=== PATIENT | female | born 1995 | race Caucasian/White ===

== ENCOUNTER 2018-01-27 14:15 | Emergency (ER) | payer MEDICAID ==
[2018-01-27 14:21] VITALS: BP 133/76
--- NOTE | 2018-01-27 15:20 | ER Document Report ---
ED General - General Chief Complaint: Syncope Stated Complaint: VOMITING Time Seen by Provider: 01/27/18 15:14 Mode of Arrival: Ambulatory Information source: Patient TRAVEL OUTSIDE OF THE [place] IN LAST 30 DAYS: No - HPI Patient complains to provider of: sunburn yesterday; N/V today Onset: This morning - pt with sunburn yesterday with N/V and syncopal episode today - feels fine now. Wants work note - Related Data Allergies/Adverse Reactions: No Known Allergies Allergy (Verified 01/27/18 15:19) Past Medical History - General Information source: Patient - Social History Smoking Status: Never Smoker Cigarette use (# per day): No Chew tobacco use (# tins/day): No Smoking Education Provided: No Family History: None Review of Systems - Review of Systems Constitutional: No symptoms reported EENT: No symptoms reported Cardiovascular: No symptoms reported Gastrointestinal: See HPI, Nausea, Vomiting Neurological/Psychological: See HPI -: Yes All other systems reviewed and negative Physical Exam - Vital signs Vitals: Temp Pulse Resp BP Pulse Ox 98.5 F 112 H 18 133/76 H 98 01/27/18 14:20 01/27/18 14:20 01/27/18 14:20 01/27/18 14:20 01/27/18 14:20 - General General appearance: Appears well In distress: None - HEENT Pharynx: Normal Neck: Normal - Respiratory Respiratory status: No respiratory distress Breath sounds: Normal - Cardiovascular Rhythm: Regular Heart sounds: Normal auscultation - Neurological Neuro grossly intact: Yes Cognition: Normal Orientation: AAOx4 - Skin Skin Color: Erythema Course - Re-evaluation Re-evalutation: 01/27/18 15:16 pt. has refused labs --wants work note and be d/c'd - Vital Signs Vital signs: Temp Pulse Resp BP Pulse Ox 98.5 F 112 H 18 133/76 H 98 01/27/18 14:20 01/27/18 14:20 01/27/18 14:20 01/27/18 14:20 01/27/18 14:20 Discharge - Discharge Clinical Impression: Sunburn Syncope Qualifiers: Syncope type: unspecified Qualified Code(s): R55 - Syncope and collapse Condition: Stable Disposition: HOME, SELF-CARE Additional Instructions: rest, avoid sun, increase fluids, take meds as prescribed, return if worse Prescriptions: Methylprednisolone [Medrol Dosepack (4 mg/Tab) 21 Tab/Dosepak] 21 tab PO ASDIR PRN #1 dspk PRN Reason: Forms: Return to Work Referrals: LUCY HERNANDES MD [ACTIVE STAFF] - Follow up as needed
--- NOTE | 2018-01-28 00:09 | EKG REPORT ---
SEVERITY:- NORMAL ECG - SINUS RHYTHM : Confirmed by: Mildred Calix MD 28-Jan-2018 00:08:33
== END 2018-01-27 15:20 | disposition home or self-care (01) ==
LOC: ER 14:15
DX: L55.0 Sunburn of first degree (principal); R55 Syncope and collapse; R11.2 Nausea with vomiting, unspecified
CPT/HCPCS: 93005; 93010; 99284